=== PATIENT | male | born 1955 ===

== ENCOUNTER → 2023-11-17 08:07 | Day surgery (SDC) | payer MEDICARE, OTHER, SELFPAY ==
[2023-11-17 08:54] LABS: Hematocrit 40.7 % (39.0-52.0); Hemoglobin 14.1 g/dL (13.0-18.0); Mean Corp Hgb Conc. 34.6 g/dL (33.0-37.0); Mean Corpuscular Volume 92.5 fL (80.0-94.0); Mean Platelet Volume 11.7 fL (7.4-10.4); Platelet Count 135 10^3/uL (130-400); Red Cell Dist. Width 12.8 % (11.5-14.5); White Blood Cell Count 5.6 10^3/uL (4.8-10.8)
[2023-11-17 09:34] LABS: Blood Urea Nitrogen 24 mg/dl (9-20); Calcium 9.2 mg/dl (8.4-10.2); Carbon Dioxide 29 mmol/L (22-30); Chloride 102 mmol/L (98-107); Glucose 126 mg/dl (70-99); Potassium 4.9 mmol/L (3.5-5.1); Sodium 140 mmol/L (135-145); eGFR > 60.00
== END ==
LOC: SDSPAT 08:07
PROVIDERS: ATTENDING PHYSICIAN Surgery; FAMILY PHYSICIAN Internal Medicine
DX: Z01.810 Encounter for preprocedural cardiovascular examination (principal); Z01.812 Encounter for preprocedural laboratory examination
CPT/HCPCS: 85027; 93005; 80048

== ENCOUNTER 2023-11-28 06:52 | Day surgery (SDC) | payer MEDICARE, OTHER, SELFPAY ==
[2023-11-17 07:57] VITALS: BMI 26.9
[2023-11-28 08:04] VITALS: BMI 26.9
[2023-11-28 08:13] VITALS: BP 124/69
[2023-11-28] MEDS: TYLENOL 1000 MG PO (08:26)
[2023-11-28 08:42] LABS: Glucose - Point of Care 117 mg/dl (70-99)
[2023-11-28] MEDS: NORMOSOL-R/PLASMALYTE-A 1000 IV (08:42)
--- NOTE | 2023-11-28 09:01 | W.SUR.PREOP ---
Pre-Operative Surgical Note
-
I have examined this patient prior to the performance of the scheduled procedure.
The patient's condition is unchanged from the time of the current History and
Physical and the patient is able to undergo the scheduled procedure.
--- NOTE | 2023-11-28 11:14 | W.IMMPOSTOP ---
Addendum entered and electronically signed by Praneeth Henning MD 11/28/23 11:23:
[id number]
Original Note:
Surgical Immed Post Op Note
-
Primary Surgeon: Juvencio
Assisting Surgeon: Marissa Mcintyre PA-c
Pre-op Diagnosis: RIH
Post-op Diagnosis: RIH - indirect
Procedure Performed: RAL DAMIEN repair RIH with mesh; 3d max exlarge mid
Anesthesia Type: GETA + 0.25% Marcaine
Specimen / Cultures: none
Estimated Blood Loss: 8mL
Complications: none immediate
Operative Findings: large right indirect inguinal hernia with lipoma of cord structures (excised) 3d max ex-L mid weight mesh repair.
The assistance of Marissa Mcintyre PA-C was required due to the complexity of the procedure. During the procedure Marissa Mcintyer PA-C assisted with port placement, robotic instrumentation and suture material exchanges, and closure of the surgical incision
sites. I was present for the entirety of the operative procedure.
[2023-11-28 11:15] VITALS: BP 124/69; BP 127/70
[2023-11-28 11:24] LABS: Glucose - Point of Care 153 mg/dl (70-99)
[2023-11-28 11:30] VITALS: BP 130/75
[2023-11-28 12:00] VITALS: BP 116/63
[2023-11-28 12:30] VITALS: BP 115/73
[2023-11-28 12:53] VITALS: BP 118/72
== END 2023-11-28 12:54 | disposition home or self-care (01) ==
LOC: SDS 06:52
PROVIDERS: ATTENDING PHYSICIAN Surgery
DX: K40.90 Unilateral inguinal hernia, without obstruction or gangrene, not specified as recurrent (principal)
CPT/HCPCS: 49650; 82962; C1781